=== PATIENT | male | born 1935 | race Caucasian/White ===

== ENCOUNTER 2016-08-30 20:03 | Inpatient (IN) | payer OTHER ==
[~2016-08-30] VITALS: Ht 170.2 cm; Wt 72.5 kg
[~2016-08-30 20:03] MED LIST: ASPI-515 PO; ATOR40TA PO; CHOL10003 PO; CLOP75TA22 PO; LORA-445 PO; LOSA25TA5 PO; METF500T4 PO; METO25TA35 PO; OMEP-110 PO; RANO500T2 PO
[2016-08-30] MEDS ORDERED: SODIUM CHLORIDE 0.9% 1,000ML IVBOLUS ONE (20:30)
[2016-08-30] MEDS: SODIUM CHLORIDE 0.9% 1,000 ML IV ONE ×2 (20:58→23:33)
[2016-08-30] MEDS ORDERED: LORA-445 PO (20:59)
[2016-08-30 21:00] LABS: BLOOD UREA NITROGEN 25 mg/dL (7-18)
[2016-08-30 21:03] LABS: ASPARTATE AMINO TRANSFERASE 9 U/L (15-37)
[2016-08-30] MEDS ORDERED: OMNIPAQUE 350 MG/ML, 100ML BOTTLE ONE (21:14)
[2016-08-31] MEDS ORDERED: LORazepam 0.5MG TABLET PO SCH
[2016-08-31] MEDS ORDERED: ONDANSETRON 2MG/ML, 2ML IVPush PRN (00:30)
[2016-08-31] MEDS ORDERED: DOCUSATE 100 MG CAPSULE PO PRN (00:30)
[2016-08-31] MEDS ORDERED: HYDROcodone/APAP 5/325 TABLET PO PRN (00:30)
[2016-08-31] MEDS ORDERED: ACETAMINOPHEN 325 MG TABLET PO PRN (00:30)
[2016-08-31] MEDS ORDERED: morphine SULFATE 10 MG/ML, 1ML IVPush PRN (00:30)
[2016-08-31] MEDS ORDERED: POLYETHYLENE GLYCOL 17 GM PACKET PO PRN (00:30)
[2016-08-31] MEDS: LORAZEPAM MC SCH ×2 (02:00→10:00)
[2016-08-31] MEDS: SODIUM CHLORIDE 0.9% 1,000 ML IV SCH ×2 (02:23→13:18)
[2016-08-31 02:37] VITALS: BP 107/68
[2016-08-31 06:26] VITALS: BP 95/58
[2016-08-31 08:43] VITALS: BP 104/62
[2016-08-31] MEDS: RANOLAZINE 500 MG TAB.ER.12H PO SCH ×2 (08:44→21:11)
[2016-08-31] MEDS: METOPROLOL TARTRATE 25 MG TABLET PO SCH ×2 (08:44→21:00)
[2016-08-31] MEDS ORDERED: LORazepam 0.5MG TABLET PO PRN (12:30)
[2016-08-31 13:37] VITALS: BP 107/55
[2016-08-31] MEDS: LORazepam 0.5MG TABLET PO PRN (18:43)
[2016-08-31 20:01] VITALS: BP 110/67
[2016-08-31] MEDS: ATORVASTATIN 40 MG TABLET PO SCH (21:11)
[2016-08-31] MEDS: LOSARTAN 25MG TABLET PO SCH (21:11)
[2016-09-01 04:05] VITALS: BP 126/79
[2016-09-01 06:37] LABS: BLOOD UREA NITROGEN 14 mg/dL (7-18)
[2016-09-01 07:43] VITALS: BP 97/46
[2016-09-01] MEDS: RANOLAZINE 500 MG TAB.ER.12H PO SCH ×2 (08:55→21:08)
[2016-09-01] MEDS: METOPROLOL TARTRATE 25 MG TABLET PO SCH ×2 (08:55→21:00)
[2016-09-01] MEDS: LORazepam 0.5MG TABLET PO PRN ×2 (10:34→21:09)
[2016-09-01 14:46] VITALS: BP 105/61
[2016-09-01 20:00] VITALS: BP 105/63
[2016-09-01] MEDS: ATORVASTATIN 40 MG TABLET PO SCH (21:08)
[2016-09-01] MEDS: LOSARTAN 25MG TABLET PO SCH (21:08)
[2016-09-02 02:06] VITALS: BP 98/58
[2016-09-02 08:27] VITALS: BP 99/62
[2016-09-02] MEDS: LORazepam 0.5MG TABLET PO PRN (09:56)
[2016-09-02] MEDS: METOPROLOL TARTRATE 25 MG TABLET PO SCH (09:56)
[2016-09-02] MEDS: RANOLAZINE 500 MG TAB.ER.12H PO SCH (09:56)
== END 2016-09-02 10:35 | disposition home or self-care (01) | DRG 377 ==
LOC: ED 23:03 → SUATTDRO 23:55 → EDIP 23:59 → 3NE 08-31 01:37 → DCLOUNGE 09-02 10:22
PROVIDERS: ADMIT Family Medicine; ATTEND Family Medicine
DX: K92.2 Gastrointestinal hemorrhage, unspecified (principal); N17.0 Acute kidney failure with tubular necrosis; E87.1 Hypo-osmolality and hyponatremia; E11.9 Type 2 diabetes mellitus without complications; I25.10 Atherosclerotic heart disease of native coronary artery without angina pectoris; K21.9 Gastro-esophageal reflux disease without esophagitis; K57.30 Diverticulosis of large intestine without perforation or abscess without bleeding; Z66 Do not resuscitate; Z79.01 Long term (current) use of anticoagulants; Z79.02 Long term (current) use of antithrombotics/antiplatelets; Z79.82 Long term (current) use of aspirin; Z82.49 Family history of ischemic heart disease and other diseases of the circulatory system; Z85.46 Personal history of malignant neoplasm of prostate; Z95.1 Presence of aortocoronary bypass graft; Z90.49 Acquired absence of other specified parts of digestive tract; Z91.011 Allergy to milk products; Z79.899 Other long term (current) drug therapy; R03.0 Elevated blood-pressure reading, without diagnosis of hypertension; K92.1 Melena; I95.1 Orthostatic hypotension; T45.525A Adverse effect of antithrombotic drugs, initial encounter; T39.015A Adverse effect of aspirin, initial encounter
CPT/HCPCS: 36415; 74177; 80048; 80053; 81003; 83690; 83735; 85014; 85018; 85025; 85610; 85730; 86850; 86900; 96360; 96361; Q9967; J7030

== ENCOUNTER 2017-06-04 19:31 | Inpatient (IN) | payer OTHER ==
[~2017-06-04] VITALS: Ht 170.2 cm; Wt 68.1 kg
[~2017-06-04 19:31] MED LIST changes: -CLOP75TA22 PO; +CLOP75TA52 PO
[2017-06-04] MEDS ORDERED: SODIUM CHLORIDE FLUSH 10ML SYR IVF ONE (20:00)
[2017-06-04 20:17] LABS: INTERNATIONAL NORMALIZED RATIO 1.18 (0.93-1.1); PROTHROMBIN TIME 12.2 Seconds (9.6-11.5)
[2017-06-04 20:19] LABS: ALBUMIN 2.9 g/dL (3.4-5.0); ANION GAP 5 mmol/L (5-15); CALCIUM 8.2 mg/dL (8.5-10.1); CHLORIDE 104 mmol/L (98-107); CREATININE 1.64 mg/dL (0.7-1.3)
[2017-06-04 20:24] LABS: TROPONIN I < 0.015 ng/mL (0.000-0.045)
[2017-06-04 20:27] LABS: HEMOGRAM NOTE RECHECKED; MEAN CORPUSCULAR HEMOGLOBIN 31.8 pg (27.5-34.5); MEAN CORPUSCULAR VOLUME 93.5 fL (81-97); PLATELET COUNT 69 x10^3/uL (130-400); RED BLOOD COUNT 4.33 x10^6/uL (4.38-5.82); RED CELL DISTRIBUTION WIDTH 15.3 % (9.4-14.8)
[2017-06-04 20:28] LABS: MD YES
[2017-06-04 20:29] LABS: LYMPH#(MANUAL) 0.96 x10^3/uL (1-3.4); LYMPHS% (MANUAL) 13 % (22-44); MONOS% (MANUAL) 4 % (2-9); SEG#(MANUAL) 6.14 x10^3/uL (1.8-6.8); SEGS% (MANUAL) 83 % (42-75)
[2017-06-04 20:30] LABS: <PLATELET ESTIMATE> DECREASED; <RBC MORPHOLOGY> NORMAL; LARGE PLATELETS 1+
[2017-06-04] MEDS ORDERED: SODIUM CHLORIDE FLUSH 10ML SYR IVF PRN (21:30)
[2017-06-04 22:47] VITALS: BP 145/66
[2017-06-05] MEDS ORDERED: ATORVASTATIN 40 MG TABLET PO SCH (01:00)
[2017-06-05] MEDS ORDERED: LORazepam 0.5MG TABLET PO SCH (01:00)
[2017-06-05] MEDS ORDERED: LOSARTAN 25MG TABLET PO SCH (01:00)
[2017-06-05] MEDS: ATIVAN MC SCH ×2 (01:05→09:00)
[2017-06-05] MEDS ORDERED: LORazepam 0.5MG TABLET ONE (01:22)
[2017-06-05] MEDS: SODIUM CHLORIDE 0.9% 1,000 ML IV SCH ×2 (01:23→16:05)
[2017-06-05] MEDS ORDERED: hydrALAzine 20 MG/ML, 1ML IVPush PRN (01:30)
[2017-06-05] MEDS ORDERED: POLYETHYLENE GLYCOL 17 GM PACKET PO PRN (01:30)
[2017-06-05] MEDS ORDERED: ACETAMINOPHEN 325 MG TABLET PO PRN (01:30)
[2017-06-05] MEDS ORDERED: BISACODYL 10 MG SUPP PR PRN (01:30)
[2017-06-05] MEDS ORDERED: LABETALOL 5MG/ML, 20ML IVPush PRN (01:30)
[2017-06-05] MEDS ORDERED: morphine SULFATE 10 MG/ML, 1ML IVPush PRN (01:30)
[2017-06-05] MEDS ORDERED: ENALAPRILAT 1.25 MG/ML, 2ML IVPush PRN (01:30)
[2017-06-05] MEDS ORDERED: ONDANSETRON 2MG/ML, 2ML IVPush PRN (01:30)
[2017-06-05] MEDS ORDERED: OXYcodone IR 5MG TABLET PO PRN (01:30)
[2017-06-05] MEDS: HEPARIN 5,000 UNITS/ML, 1ML SQ SCH ×2 (01:37→08:21)
[2017-06-05 02:14] LABS: FREE T4 (FREE THYROXINE) 1.16 ng/dL (0.76-1.46); THYROID STIMULATING HORMONE 1.18 mIU/L (0.358-3.740)
[2017-06-05 02:45] LABS: HEMOGLOBIN A1C 7.2 % (4.2-6.3)
[2017-06-05 02:50] VITALS: BP_SYST 123; BP_SYST 149; BP_DIAS 72
[2017-06-05 03:26] LABS: MEAN CORPUSCULAR HEMOGLOBIN 31.4 pg (27.5-34.5); MEAN CORPUSCULAR HGB CONC 33.5 g/dL (33.2-36.2); MEAN CORPUSCULAR VOLUME 93.9 fL (81-97); RED BLOOD COUNT 4.64 x10^6/uL (4.38-5.82); RED CELL DISTRIBUTION WIDTH 14.9 % (9.4-14.8)
[2017-06-05 03:29] LABS: ALANINE AMINOTRANSFERASE 21 U/L (12-78); ALBUMIN 3.1 g/dL (3.4-5.0); ANION GAP 6 mmol/L (5-15); CALCIUM 8.4 mg/dL (8.5-10.1); CHLORIDE 104 mmol/L (98-107); CREATININE 1.46 mg/dL (0.7-1.3)
[2017-06-05 03:34] LABS: ALKALINE PHOSPHATASE 77 U/L (45-117); BILIRUBIN,TOTAL 0.9 mg/dL (0.2-1.0); TOTAL PROTEIN 5.8 g/dL (6.4-8.2); TROPONIN I < 0.015 ng/mL (0.000-0.045)
[2017-06-05 03:49] LABS: BASOPHILS # (AUTO) 0.04 x10^3/uL (0-0.1); BASOPHILS % (AUTO) 1 % (0-1); EOSINOPHILS # (AUTO) 0.22 x10^3/uL (0-0.4); EOSINOPHILS % (AUTO) 4 % (1-7); LYMPHOCYTES # (AUTO) 1.48 x10^3/uL (1-3.4); LYMPHOCYTES % (AUTO) 25 % (22-44); MD SCAN; MEAN PLATELET VOLUME 9.9 fL (7.4-10.4); MONOCYTES # (AUTO) 0.57 x10^3/uL (0.2-0.8); MONOCYTES % (AUTO) 10 % (2-9); NEUTROPHILS # (AUTO) 3.58 x10^3/uL (1.8-6.8); NEUTROPHILS % (AUTO) 61 % (42-75); PLATELET COUNT 72 x10^3/uL (130-400)
[2017-06-05] MEDS: INSULIN LISPRO 100 UNITS/ML, PEN SQ-INSULIN SCH ×2 (07:00→11:00)
[2017-06-05 07:03] VITALS: BP 154/77
[2017-06-05] MEDS ORDERED: OMEPRAZOLE 20 MG CAPSULE.DR PO SCH (09:00)
[2017-06-05] MEDS ORDERED: METOPROLOL TARTRATE 25 MG TABLET PO SCH (09:00)
[2017-06-05] MEDS ORDERED: RANOLAZINE 500 MG TAB.ER.12H PO SCH (09:00)
[2017-06-05] MEDS ORDERED: ASPIRIN 81 MG TABLET EC PO SCH (09:00)
[2017-06-05] MEDS ORDERED: CLOPIDOGREL 75 MG TABLET PO SCH (09:00)
[2017-06-05] MEDS ORDERED: SENNA/DOCUSATE TABLET PO SCH (09:00)
[2017-06-05 09:08] LABS: TROPONIN I < 0.015 ng/mL (0.000-0.045)
[2017-06-05] MEDS ORDERED: REGADENOSON 0.4 MG/5 ML SYRINGE ONE (09:59)
[2017-06-05 13:02] VITALS: BP 129/71
[2017-06-05 16:38] VITALS: BP 136/71
[2017-06-05] MEDS ORDERED: LORazepam 0.5MG TABLET PO PRN (21:00)
== END 2017-06-05 17:09 | disposition home or self-care (01) | DRG 551 ==
LOC: ED 21:35 → EDIP 21:46 → 5SO 22:41
PROVIDERS: ADMIT Internal Medicine; ATTEND Internal Medicine
DX: M54.2 Cervicalgia (principal); N17.0 Acute kidney failure with tubular necrosis; E44.0 Moderate protein-calorie malnutrition; I25.110 Atherosclerotic heart disease of native coronary artery with unstable angina pectoris; D69.6 Thrombocytopenia, unspecified; Z79.82 Long term (current) use of aspirin; Z95.1 Presence of aortocoronary bypass graft; Z95.5 Presence of coronary angioplasty implant and graft; E11.9 Type 2 diabetes mellitus without complications; E78.5 Hyperlipidemia, unspecified; I10 Essential (primary) hypertension; K21.9 Gastro-esophageal reflux disease without esophagitis; Z80.9 Family history of malignant neoplasm, unspecified; I25.2 Old myocardial infarction; I51.89 Other ill-defined heart diseases; Z91.011 Allergy to milk products; Z82.49 Family history of ischemic heart disease and other diseases of the circulatory system; R07.89 Other chest pain
CPT/HCPCS: 36415; 71045; 78452; 80048; 80053; 82040; 82962; 83036; 83735; 83880; 84439; 84443; 84484; 85025; 85610; 85730; 93005; 93017; 93880; 99285; J1644; J2785; A9502; C9898; J7030

== ENCOUNTER 2017-07-27 19:38 | Inpatient (IN) | payer OTHER ==
[~2017-07-27] VITALS: Ht 170.2 cm; Wt 66.9 kg
[2017-07-27] MEDS ORDERED: SODIUM CHLORIDE FLUSH 10ML SYR IVF ONE (20:30)
[2017-07-27] MEDS ORDERED: PLEASE ENTER ALLERGIES MC SCH (20:30)
[2017-07-27 20:33] LABS: INTERNATIONAL NORMALIZED RATIO 1.12 (0.93-1.1); PROTHROMBIN TIME 11.5 Seconds (9.6-11.5)
[2017-07-27 20:35] LABS: MEAN CORPUSCULAR HEMOGLOBIN 31.3 pg (27.5-34.5); MEAN CORPUSCULAR HGB CONC 33.3 g/dL (33.2-36.2); MEAN CORPUSCULAR VOLUME 93.7 fL (81-97); RED CELL DISTRIBUTION WIDTH 13.9 % (9.4-14.8)
[2017-07-27 20:37] LABS: ALBUMIN 3.6 g/dL (3.4-5.0); ANION GAP 7 mmol/L (5-15); CALCIUM 8.8 mg/dL (8.5-10.1); CHLORIDE 99 mmol/L (98-107); CREATININE 1.24 mg/dL (0.7-1.3)
[2017-07-27] MEDS ORDERED: ISOS30TA8 PO (20:39)
[2017-07-27 20:41] LABS: TROPONIN I < 0.015 ng/mL (0.000-0.045)
[2017-07-27 20:53] LABS: BASOPHILS # (AUTO) 0.04 x10^3/uL (0-0.1); BASOPHILS % (AUTO) 1 % (0-1); EOSINOPHILS # (AUTO) 0.19 x10^3/uL (0-0.4); EOSINOPHILS % (AUTO) 3 % (1-7); LYMPHOCYTES # (AUTO) 1.56 x10^3/uL (1-3.4); LYMPHOCYTES % (AUTO) 22 % (22-44); MD SCAN; MEAN PLATELET VOLUME 9.5 fL (7.4-10.4); MONOCYTES # (AUTO) 0.67 x10^3/uL (0.2-0.8); MONOCYTES % (AUTO) 9 % (2-9); NEUTROPHILS # (AUTO) 4.67 x10^3/uL (1.8-6.8); NEUTROPHILS % (AUTO) 65 % (42-75); PLATELET COUNT 79 x10^3/uL (130-400)
[2017-07-27] MEDS ORDERED: SODIUM CHLORIDE FLUSH 10ML SYR IVF PRN (21:30)
[2017-07-27] MEDS ORDERED: ACETAMINOPHEN 325 MG TABLET PO PRN (22:00)
[2017-07-27] MEDS ORDERED: ENOXAPARIN 40 MG/0.4 ML SQ SCH (22:00)
[2017-07-27] MEDS ORDERED: ONDANSETRON 2MG/ML, 2ML IVPush PRN (22:00)
[2017-07-27] MEDS ORDERED: LORazepam 0.5MG TABLET PO SCH (22:00)
[2017-07-27] MEDS ORDERED: DOCUSATE 100 MG CAPSULE PO PRN (22:00)
[2017-07-27] MEDS ORDERED: POLYETHYLENE GLYCOL 17 GM PACKET PO PRN (22:00)
[2017-07-27] MEDS ORDERED: BISACODYL 10 MG SUPP PR PRN (22:00)
[2017-07-27] MEDS ORDERED: hydrALAzine 20 MG/ML, 1ML IVPush PRN (22:00)
[2017-07-27 22:05] LABS: HCT (SEDRATE) 47.8 % (39.2-51.8)
[2017-07-27 23:19] VITALS: BP 162/81
[2017-07-27 23:30] VITALS: BP 162/81
[2017-07-27] MEDS ORDERED: [UNRECOGNIZED DRUG - REMARK] MC SCH (23:45)
[2017-07-28 00:09] VITALS: BP 134/75
[2017-07-28] MEDS ORDERED: PLEASE ENTER DRUG ALLERGIES MC SCH (01:00)
[2017-07-28 04:15] VITALS: BP 133/72
[2017-07-28 05:00] LABS: ANION GAP 5 mmol/L (5-15); CALCIUM 8.1 mg/dL (8.5-10.1); CHLORIDE 101 mmol/L (98-107)
[2017-07-28 05:01] LABS: CREATININE 1.21 mg/dL (0.7-1.3); MEAN CORPUSCULAR HEMOGLOBIN 31.6 pg (27.5-34.5); MEAN CORPUSCULAR HGB CONC 33.9 g/dL (33.2-36.2); MEAN CORPUSCULAR VOLUME 93.2 fL (81-97); RED BLOOD COUNT 4.69 x10^6/uL (4.38-5.82)
[2017-07-28 05:53] LABS: BASOPHILS # (AUTO) 0.02 x10^3/uL (0-0.1); BASOPHILS % (AUTO) 0 % (0-1); EOSINOPHILS # (AUTO) 0.24 x10^3/uL (0-0.4); EOSINOPHILS % (AUTO) 4 % (1-7); LYMPHOCYTES # (AUTO) 1.52 x10^3/uL (1-3.4); LYMPHOCYTES % (AUTO) 23 % (22-44); MD SCAN; MEAN PLATELET VOLUME 9.2 fL (7.4-10.4); MONOCYTES # (AUTO) 0.77 x10^3/uL (0.2-0.8); MONOCYTES % (AUTO) 12 % (2-9); NEUTROPHILS # (AUTO) 4.19 x10^3/uL (1.8-6.8); NEUTROPHILS % (AUTO) 62 % (42-75); PLATELET COUNT 71 x10^3/uL (130-400)
[2017-07-28] MEDS ORDERED: LORazepam 0.5MG TABLET PO PRN ×2 (06:30→07:00)
[2017-07-28 08:36] VITALS: BP 138/83
[2017-07-28] MEDS ORDERED: ISOSORBIDE MONONITRATE ER 30 MG TABLET PO SCH (09:00)
[2017-07-28] MEDS ORDERED: SODIUM CHLORIDE FLUSH 10ML SYR IVF SCH (09:00)
[2017-07-28] MEDS ORDERED: CLOPIDOGREL 75 MG TABLET PO SCH (09:00)
[2017-07-28] MEDS ORDERED: METOPROLOL TARTRATE 25 MG TABLET PO SCH ×2 (09:00)
[2017-07-28] MEDS ORDERED: ASPIRIN 81 MG TABLET EC PO SCH (09:00)
[2017-07-28] MEDS ORDERED: GADOBUTROL 10 MMOL/10 ML PFS ONE (11:20)
[2017-07-28 11:45] VITALS: BP 112/74
[2017-07-28] MEDS ORDERED: ATORVASTATIN 40 MG TABLET PO SCH (21:00)
[2017-07-28] MEDS ORDERED: LOSARTAN 25MG TABLET PO SCH (21:00)
== END 2017-07-28 15:40 | disposition home or self-care (01) | DRG 69 ==
LOC: ED 21:09 → EDIP 21:55 → 5SO 23:37 → DCLOUNGE 07-28 15:28
PROVIDERS: ADMIT Hospitalist; ATTEND Hospitalist
DX: G45.9 Transient cerebral ischemic attack, unspecified (principal); E87.1 Hypo-osmolality and hyponatremia; I50.32 Chronic diastolic (congestive) heart failure; E11.65 Type 2 diabetes mellitus with hyperglycemia; I11.0 Hypertensive heart disease with heart failure; D69.6 Thrombocytopenia, unspecified; I25.10 Atherosclerotic heart disease of native coronary artery without angina pectoris; M54.2 Cervicalgia; E78.5 Hyperlipidemia, unspecified; Z60.2 Problems related to living alone; K21.9 Gastro-esophageal reflux disease without esophagitis; Z84.89 Family history of other specified conditions; Z95.1 Presence of aortocoronary bypass graft; Z87.891 Personal history of nicotine dependence; Z86.73 Personal history of transient ischemic attack (TIA), and cerebral infarction without residual deficits; Z85.46 Personal history of malignant neoplasm of prostate; Z79.84 Long term (current) use of oral hypoglycemic drugs; I25.2 Old myocardial infarction; Z79.899 Other long term (current) drug therapy; Z79.82 Long term (current) use of aspirin; Z90.79 Acquired absence of other genital organ(s); Z90.49 Acquired absence of other specified parts of digestive tract; Z80.9 Family history of malignant neoplasm, unspecified
CPT/HCPCS: 36415; 70450; 70553; 71045; 80048; 82040; 84484; 85025; 85610; 85651; 85730; 93005; A9585; J1650

== ENCOUNTER 2017-07-29 19:50 | Emergency (ER) | payer OTHER ==
[~2017-07-29] VITALS: Ht 170.2 cm; Wt 66.0 kg
[~2017-07-29 19:50] MED LIST changes: +ISOS30TA8 PO; -METF500T4 PO; +METF500T5 PO
[2017-07-29] MEDS ORDERED: SODIUM CHLORIDE FLUSH 10ML SYR IVF ONE (20:30)
[2017-07-29 20:58] LABS: MEAN CORPUSCULAR HGB CONC 33.4 g/dL (33.2-36.2); RED BLOOD COUNT 4.62 x10^6/uL (4.38-5.82); RED CELL DISTRIBUTION WIDTH 14.2 % (9.4-14.8)
[2017-07-29 21:03] LABS: INTERNATIONAL NORMALIZED RATIO 1.14 (0.93-1.1); PROTHROMBIN TIME 11.7 Seconds (9.6-11.5)
[2017-07-29 21:09] LABS: ALBUMIN 3.1 g/dL (3.4-5.0); ANION GAP 5 mmol/L (5-15); CALCIUM 8.6 mg/dL (8.5-10.1); CHLORIDE 99 mmol/L (98-107); CREATININE 1.37 mg/dL (0.7-1.3)
[2017-07-29 21:12] LABS: TROPONIN I < 0.015 ng/mL (0.000-0.045)
[2017-07-29 21:41] VITALS: BP 137/70
[2017-07-29 22:11] LABS: BASOPHILS # (AUTO) 0.03 x10^3/uL (0-0.1); BASOPHILS % (AUTO) 0 % (0-1); EOSINOPHILS # (AUTO) 0.17 x10^3/uL (0-0.4); EOSINOPHILS % (AUTO) 2 % (1-7); LYMPHOCYTES # (AUTO) 1.15 x10^3/uL (1-3.4); LYMPHOCYTES % (AUTO) 16 % (22-44); MD SCAN; MEAN PLATELET VOLUME 9.5 fL (7.4-10.4); MONOCYTES # (AUTO) 0.77 x10^3/uL (0.2-0.8); MONOCYTES % (AUTO) 11 % (2-9); NEUTROPHILS # (AUTO) 5.25 x10^3/uL (1.8-6.8); NEUTROPHILS % (AUTO) 71 % (42-75); PLATELET COUNT 79 x10^3/uL (130-400)
== END 2017-07-29 21:44 | disposition home or self-care (01) ==
LOC: ED 20:56
DX: R07.2 Precordial pain (principal); I25.2 Old myocardial infarction; E78.5 Hyperlipidemia, unspecified; E11.9 Type 2 diabetes mellitus without complications; K21.9 Gastro-esophageal reflux disease without esophagitis; I25.10 Atherosclerotic heart disease of native coronary artery without angina pectoris; I11.9 Hypertensive heart disease without heart failure; Z95.1 Presence of aortocoronary bypass graft; Z87.891 Personal history of nicotine dependence; Z86.73 Personal history of transient ischemic attack (TIA), and cerebral infarction without residual deficits
CPT/HCPCS: 36415; 71045; 80048; 82040; 83880; 84484; 85025; 85610; 93005; 99285

== ENCOUNTER 2017-11-29 19:13 | Observation (INO) | payer OTHER ==
[~2017-11-29] VITALS: Ht 170.2 cm; Wt 69.5 kg
[~2017-11-29 19:13] MED LIST changes: -LOSA25TA5 PO; +LOSA25TA6 PO; +METF500T17 PO; -METF500T5 PO
[2017-11-29 20:16] LABS: ALANINE AMINOTRANSFERASE 28 U/L (12-78); ALBUMIN 3.2 g/dL (3.4-5.0); ANION GAP 3 mmol/L (5-15); CALCIUM 8.9 mg/dL (8.5-10.1); CHLORIDE 101 mmol/L (98-107); CREATININE 1.53 mg/dL (0.7-1.3)
[2017-11-29 20:21] LABS: ALKALINE PHOSPHATASE 104 U/L (45-117); BILIRUBIN,TOTAL 0.6 mg/dL (0.2-1.0); TOTAL PROTEIN 6.5 g/dL (6.4-8.2); TROPONIN I < 0.015 ng/mL (0.000-0.045)
[2017-11-29 20:29] LABS: MEAN CORPUSCULAR HGB CONC 33.8 g/dL (33.2-36.2); MEAN CORPUSCULAR VOLUME 91.8 fL (81-97); MEAN PLATELET VOLUME 9.6 fL (7.4-10.4); PLATELET COUNT 101 x10^3/uL (130-400); RED BLOOD COUNT 4.78 x10^6/uL (4.38-5.82); RED CELL DISTRIBUTION WIDTH 14.8 % (9.4-14.8)
[2017-11-29 20:30] LABS: BASOPHILS # (AUTO) 0.05 x10^3/uL (0-0.1); BASOPHILS % (AUTO) 1 % (0-1); EOSINOPHILS # (AUTO) 0.19 x10^3/uL (0-0.4); EOSINOPHILS % (AUTO) 2 % (1-7); LYMPHOCYTES # (AUTO) 1.19 x10^3/uL (1-3.4); LYMPHOCYTES % (AUTO) 13 % (22-44); MD SCAN; MONOCYTES # (AUTO) 0.75 x10^3/uL (0.2-0.8); MONOCYTES % (AUTO) 8 % (2-9); NEUTROPHILS # (AUTO) 6.73 x10^3/uL (1.8-6.8); NEUTROPHILS % (AUTO) 76 % (42-75)
[2017-11-29] MEDS ORDERED: SODIUM CHLORIDE 0.9% 1,000 ML IV SCH (21:26)
[2017-11-29] MEDS ORDERED: ONDANSETRON 2MG/ML, 2ML IVPush PRN (21:30)
[2017-11-29] MEDS ORDERED: NITROGLYCERIN 0.4 MG BOTTLE (25 TABS) SL PRN (21:30)
[2017-11-29] MEDS ORDERED: hydrALAzine 20 MG/ML, 1ML IVPush PRN (21:30)
[2017-11-29] MEDS ORDERED: CYCLOBENZAPRINE 10 MG TABLET PO PRN (21:30)
[2017-11-29] MEDS ORDERED: BISACODYL 10 MG SUPP PR PRN (21:30)
[2017-11-29] MEDS ORDERED: GABAPENTIN 300 MG CAPSULE PO PRN (21:30)
[2017-11-29] MEDS ORDERED: POLYETHYLENE GLYCOL 17 GM PACKET PO PRN (21:30)
[2017-11-29] MEDS ORDERED: morphine SULFATE 10 MG/ML, 1ML IVPush PRN (21:30)
[2017-11-29] MEDS ORDERED: DOCUSATE 100 MG CAPSULE PO PRN (21:30)
[2017-11-29] MEDS ORDERED: PROMETHAZINE 25 MG/ML, 1ML IM PRN (21:30)
[2017-11-29] MEDS ORDERED: LABETALOL 5MG/ML, 20ML IVPush PRN (21:30)
[2017-11-29] MEDS ORDERED: ONDANSETRON ODT 4 MG PO PRN (21:30)
[2017-11-29] MEDS ORDERED: ATORVASTATIN 40 MG TABLET PO SCH (22:00)
[2017-11-29] MEDS ORDERED: LORazepam 0.5MG TABLET PO SCH (22:00)
[2017-11-29] MEDS ORDERED: LOSARTAN 25MG TABLET PO SCH (22:00)
[2017-11-29 22:32] VITALS: BP 142/81
[2017-11-29 22:36] LABS: FREE T4 (FREE THYROXINE) 1.13 ng/dL (0.76-1.46); THYROID STIMULATING HORMONE 1.39 mIU/L (0.358-3.740)
[2017-11-29] MEDS: FAMOTIDINE 20 MG/2 ML IVPush SCH (23:26)
[2017-11-29] MEDS: ACETAMINOPHEN 500 MG TABLET PO SCH (23:26)
[2017-11-29] MEDS: METOPROLOL TARTRATE 25 MG TABLET PO SCH (23:27)
[2017-11-29] MEDS: HEPARIN 5,000 UNITS/ML, 1ML SQ SCH (23:27)
[2017-11-30 00:17] LABS: MICROSCOPIC NOT IND
[2017-11-30 00:21] LABS: CULTURE INDICATED? NO
[2017-11-30 01:22] LABS: TROPONIN I < 0.015 ng/mL (0.000-0.045)
[2017-11-30 01:53] VITALS: BP 143/76
[2017-11-30] MEDS ORDERED: ASPIRIN 325 MG TABLET EC PO SCH (06:00)
[2017-11-30] MEDS: HEPARIN 5,000 UNITS/ML, 1ML SQ SCH ×2 (06:30→13:30)
[2017-11-30 07:22] VITALS: BP 133/76
[2017-11-30 07:41] LABS: MEAN CORPUSCULAR HEMOGLOBIN 30.9 pg (27.5-34.5); MEAN CORPUSCULAR HGB CONC 33.6 g/dL (33.2-36.2); MEAN PLATELET VOLUME 9.3 fL (7.4-10.4); PLATELET COUNT 84 x10^3/uL (130-400); RED BLOOD COUNT 4.87 x10^6/uL (4.38-5.82); RED CELL DISTRIBUTION WIDTH 14.9 % (9.4-14.8)
[2017-11-30 07:44] LABS: ALANINE AMINOTRANSFERASE 24 U/L (12-78); ANION GAP 7 mmol/L (5-15); CALCIUM 8.2 mg/dL (8.5-10.1); CHLORIDE 103 mmol/L (98-107); CREATININE 1.32 mg/dL (0.7-1.3)
[2017-11-30 07:47] LABS: ALKALINE PHOSPHATASE 97 U/L (45-117); BILIRUBIN,TOTAL 0.9 mg/dL (0.2-1.0); CHOL/HDL RATIO 1.8; CHOLESTEROL, TOTAL 66 mg/dL (140-239); HDL CHOL % 55 % (26-37); HDL CHOLESTEROL (DIRECT) 36 mg/dL (40-60); LDL CHOLESTEROL,CALCULATED 21 mg/dL (54-169); LDL/HDL RATIO 0.6 (0.5-3.0); TOTAL PROTEIN 5.9 g/dL (6.4-8.2); TRIGLYCERIDES 43 mg/dL (50-200); VLDL CHOLESTEROL 9 mg/dL (0-25)
[2017-11-30 07:49] LABS: TROPONIN I < 0.015 ng/mL (0.000-0.045)
[2017-11-30 08:22] LABS: BASOPHILS # (AUTO) 0.03 x10^3/uL (0-0.1); BASOPHILS % (AUTO) 1 % (0-1); EOSINOPHILS # (AUTO) 0.24 x10^3/uL (0-0.4); EOSINOPHILS % (AUTO) 5 % (1-7); LYMPHOCYTES # (AUTO) 1.15 x10^3/uL (1-3.4); LYMPHOCYTES % (AUTO) 25 % (22-44); MD SCAN; MONOCYTES # (AUTO) 0.53 x10^3/uL (0.2-0.8); MONOCYTES % (AUTO) 11 % (2-9); NEUTROPHILS # (AUTO) 2.75 x10^3/uL (1.8-6.8); NEUTROPHILS % (AUTO) 59 % (42-75)
[2017-11-30] MEDS: METOPROLOL TARTRATE 25 MG TABLET PO SCH (08:48)
[2017-11-30] MEDS: FAMOTIDINE 20 MG/2 ML IVPush SCH (08:48)
[2017-11-30] MEDS: ACETAMINOPHEN 500 MG TABLET PO SCH (08:49)
[2017-11-30] MEDS ORDERED: CLOPIDOGREL 75 MG TABLET PO SCH (09:00)
[2017-11-30] MEDS ORDERED: OMEPRAZOLE 20 MG CAPSULE.DR PO SCH (09:00)
[2017-11-30] MEDS ORDERED: ISOSORBIDE MONONITRATE ER 30 MG TABLET PO SCH (09:00)
[2017-11-30] MEDS ORDERED: metFORMIN 500 MG TABLET PO SCH (09:00)
[2017-11-30] MEDS ORDERED: METO25TA35 PO (10:30)
[2017-11-30 12:16] VITALS: BP 98/60
[2017-12-01] MEDS ORDERED: FAMOTIDINE 20 MG/2 ML IVPush SCH (09:00)
== END 2017-11-30 17:07 | disposition home or self-care (01) ==
LOC: ED 20:05 → INTOOBSV 20:53 → EDIP 20:53 → 5SO 22:26
PROVIDERS: ADMIT Internal Medicine; ATTEND Internal Medicine
DX: R07.9 Chest pain, unspecified (principal); N17.0 Acute kidney failure with tubular necrosis; I25.10 Atherosclerotic heart disease of native coronary artery without angina pectoris; E11.9 Type 2 diabetes mellitus without complications; D69.6 Thrombocytopenia, unspecified; E44.0 Moderate protein-calorie malnutrition; E78.5 Hyperlipidemia, unspecified; I10 Essential (primary) hypertension; I25.2 Old myocardial infarction; K21.9 Gastro-esophageal reflux disease without esophagitis; Z80.9 Family history of malignant neoplasm, unspecified; Z86.73 Personal history of transient ischemic attack (TIA), and cerebral infarction without residual deficits; Z87.891 Personal history of nicotine dependence; Z95.1 Presence of aortocoronary bypass graft
CPT/HCPCS: 36415; 71046; 80053; 80061; 81003; 83735; 84439; 84443; 84484; 85025; 93005; 96361; 96374; 96376; 99285; G0378; J1644; J7030; S0028

== ENCOUNTER 2018-01-11 19:26 | Observation (INO) | payer OTHER ==
[~2018-01-11] VITALS: Ht 170.2 cm; Wt 70.0 kg
[2018-01-11 04:09] VITALS: BP 123/76
[2018-01-11 20:27] LABS: ALANINE AMINOTRANSFERASE 29 U/L (12-78); ALBUMIN 3.2 g/dL (3.4-5.0); ANION GAP 6 mmol/L (5-15); CALCIUM 8.1 mg/dL (8.5-10.1); CHLORIDE 101 mmol/L (98-107)
[2018-01-11 20:32] LABS: ALKALINE PHOSPHATASE 124 U/L (45-117); BILIRUBIN,TOTAL 0.7 mg/dL (0.2-1.0); CREATININE 1.39 mg/dL (0.7-1.3); TOTAL PROTEIN 6.4 g/dL (6.4-8.2); TROPONIN I < 0.015 ng/mL (0.000-0.045)
[2018-01-11 21:00] LABS: BASOPHILS # (AUTO) 0.06 x10^3/uL (0-0.1); BASOPHILS % (AUTO) 1 % (0-1); EOSINOPHILS # (AUTO) 0.19 x10^3/uL (0-0.4); EOSINOPHILS % (AUTO) 2 % (1-7); LYMPHOCYTES # (AUTO) 1.38 x10^3/uL (1-3.4); LYMPHOCYTES % (AUTO) 16 % (22-44); MD SCAN; MEAN CORPUSCULAR HEMOGLOBIN 30.5 pg (27.5-34.5); MEAN CORPUSCULAR HGB CONC 33.2 g/dL (33.2-36.2); MEAN CORPUSCULAR VOLUME 91.8 fL (81-97); MEAN PLATELET VOLUME 9.3 fL (7.4-10.4); MONOCYTES # (AUTO) 0.82 x10^3/uL (0.2-0.8); MONOCYTES % (AUTO) 9 % (2-9); NEUTROPHILS # (AUTO) 6.28 x10^3/uL (1.8-6.8); NEUTROPHILS % (AUTO) 72 % (42-75); PLATELET COUNT 85 x10^3/uL (130-400); RED BLOOD COUNT 4.82 x10^6/uL (4.38-5.82); RED CELL DISTRIBUTION WIDTH 14.5 % (9.4-14.8)
[2018-01-11 23:00] VITALS: BP 136/75
[2018-01-11] MEDS: ATORVASTATIN 40 MG TABLET PO SCH (23:30)
[2018-01-11] MEDS ORDERED: ONDANSETRON 4 MG TABLET PO PRN (23:30)
[2018-01-11] MEDS: INSULIN LISPRO 100 UNITS/ML, PEN SQ-INSULIN SCH (23:30)
[2018-01-11] MEDS ORDERED: LORazepam 0.5MG TABLET PO SCH (23:30)
[2018-01-12] VITALS (9 sets, daily range): BP systolic 113–143; BP diastolic 60–78
[2018-01-12 05:51] LABS: CHOL/HDL RATIO 2.2; LDL/HDL RATIO 0.7 (0.5-3.0)
[2018-01-12] MEDS: INSULIN LISPRO 100 UNITS/ML, PEN SQ-INSULIN SCH ×4 (07:00→21:18)
[2018-01-12] MEDS: OMEPRAZOLE 20 MG CAPSULE.DR PO SCH (08:33)
[2018-01-12] MEDS: ASPIRIN 81 MG TABLET EC PO SCH (08:33)
[2018-01-12] MEDS: CLOPIDOGREL 75 MG TABLET PO SCH (08:33)
[2018-01-12] MEDS: METOPROLOL TARTRATE 25 MG TABLET PO SCH (08:33)
[2018-01-12] MEDS: ISOSORBIDE MONONITRATE ER 30 MG TABLET PO SCH (08:33)
[2018-01-12] MEDS ORDERED: ASPIRIN 81 MG TABLET CHEW PO/NG SCH (09:00)
[2018-01-12] MEDS ORDERED: GADOBUTROL 7.5 MMOL/7.5 ML PFS ONE (12:00)
[2018-01-12] MEDS: ATORVASTATIN 40 MG TABLET PO SCH (20:22)
[2018-01-12] MEDS ORDERED: LOSA25TA6 PO (21:02)
[2018-01-13] VITALS: BP 122/69
[2018-01-13 04:00] VITALS: BP 132/72
[2018-01-13 06:32] VITALS: BP 122/64
[2018-01-13] MEDS: INSULIN LISPRO 100 UNITS/ML, PEN SQ-INSULIN SCH (07:00)
[2018-01-13] MEDS: ISOSORBIDE MONONITRATE ER 30 MG TABLET PO SCH (09:09)
[2018-01-13] MEDS: OMEPRAZOLE 20 MG CAPSULE.DR PO SCH (09:09)
[2018-01-13] MEDS: METOPROLOL TARTRATE 25 MG TABLET PO SCH (09:09)
[2018-01-13] MEDS: ASPIRIN 81 MG TABLET EC PO SCH (09:09)
[2018-01-13] MEDS: CLOPIDOGREL 75 MG TABLET PO SCH (09:09)
== END 2018-01-13 10:08 | disposition home or self-care (01) ==
LOC: ED 20:34 → EDIP 21:42 → 4EST 22:40 → INTOOBSV 23:13 → OBSVTOIN 23:13 → DCLOUNGE 01-13 09:58
PROVIDERS: ADMIT Hospitalist; ATTEND Hospitalist
DX: M46.92 Unspecified inflammatory spondylopathy, cervical region (principal); E87.1 Hypo-osmolality and hyponatremia; I11.0 Hypertensive heart disease with heart failure; I50.30 Unspecified diastolic (congestive) heart failure; R51 Headache; R20.0 Anesthesia of skin; I25.10 Atherosclerotic heart disease of native coronary artery without angina pectoris; E11.9 Type 2 diabetes mellitus without complications; E78.5 Hyperlipidemia, unspecified; I25.2 Old myocardial infarction; K21.9 Gastro-esophageal reflux disease without esophagitis; N28.9 Disorder of kidney and ureter, unspecified; I37.1 Nonrheumatic pulmonary valve insufficiency; R55 Syncope and collapse; Z95.1 Presence of aortocoronary bypass graft; Z79.84 Long term (current) use of oral hypoglycemic drugs; Z95.5 Presence of coronary angioplasty implant and graft; Z86.73 Personal history of transient ischemic attack (TIA), and cerebral infarction without residual deficits; Z79.82 Long term (current) use of aspirin; Z80.9 Family history of malignant neoplasm, unspecified; Z90.49 Acquired absence of other specified parts of digestive tract; Z79.02 Long term (current) use of antithrombotics/antiplatelets; Z87.891 Personal history of nicotine dependence
CPT/HCPCS: 36415; 70450; 70553; 72156; 80053; 80061; 82962; 83880; 84484; 85025; 92523; 93005; 93306; 93880; 96372; 97161; 97166; 99285; A9585; G0378; J1815; Q0162

== ENCOUNTER 2019-01-21 09:12 | Emergency (ER) | payer OTHER ==
[~2019-01-21] VITALS: Ht 170.2 cm; Wt 68.9 kg
[~2019-01-21 09:12] MED LIST changes: +LOSA25TA25 PO; -LOSA25TA6 PO
--- NOTE | 2019-01-21 11:13 | NUR ---
ANIMAL CARE SPECIALIST: PT TO ROOM FROM ANGELI NELSON
--- NOTE | 2019-01-21 11:20 | NUR ---
UA sent to lab
[2019-01-21 11:43] LABS: ALBUMIN 3.4 g/dL (3.4-5.0); ANION GAP 7 mmol/L (5-15); CALCIUM 8.7 mg/dL (8.5-10.1); CHLORIDE 101 mmol/L (98-107); CREATININE 1.47 mg/dL (0.7-1.3)
[2019-01-21 11:49] LABS: CULTURE INDICATED? YES; MICROSCOPIC INDICATED
--- NOTE | 2019-01-21 12:02 | NUR ---
RECEIVED REPORT FROM JACKELYN. ASSUMING CARE AT THIS TIME.
[2019-01-21 12:13] LABS: MEAN CORPUSCULAR HEMOGLOBIN 32.3 pg (27.5-34.5); MEAN CORPUSCULAR VOLUME 97.7 fL (81-97); RED BLOOD COUNT 5.02 x10^6/uL (4.38-5.82); RED CELL DISTRIBUTION WIDTH 14.2 % (9.4-14.8)
[2019-01-21 12:21] LABS: MEAN PLATELET VOLUME 9.2 fL (7.4-10.4); PLATELET COUNT 94 x10^3/uL (130-400)
[2019-01-21 12:22] LABS: BASOPHILS # (AUTO) 0.03 x10^3/uL (0-0.1); BASOPHILS % (AUTO) 0 % (0-1); EOSINOPHILS # (AUTO) 0.11 x10^3/uL (0-0.4); EOSINOPHILS % (AUTO) 1 % (1-7); LYMPHOCYTES # (AUTO) 1.03 x10^3/uL (1-3.4); LYMPHOCYTES % (AUTO) 8 % (22-44); MD SCAN; MONOCYTES % (AUTO) 5 % (2-9); NEUTROPHILS % (AUTO) 86 % (42-75)
--- NOTE | 2019-01-21 12:23 | NUR ---
ALL RESULTS ARE BACK AT THIS TIME. CHART UP FOR RECHECK
[2019-01-21 12:53] VITALS: BP 110/64
== END 2019-01-21 13:12 | disposition home or self-care (01) ==
LOC: ED 13:00
DX: N30.01 Acute cystitis with hematuria (principal); I10 Essential (primary) hypertension; E11.9 Type 2 diabetes mellitus without complications; E78.5 Hyperlipidemia, unspecified; K21.9 Gastro-esophageal reflux disease without esophagitis; I25.2 Old myocardial infarction; Z87.891 Personal history of nicotine dependence; Z90.49 Acquired absence of other specified parts of digestive tract
CPT/HCPCS: 36415; 80048; 81001; 82040; 85025; 87086; 87147; 99283

== ENCOUNTER → 2019-12-24 | Outpatient (CLI) | payer MEDICARE ==
[~2019-12-24] MED LIST changes: +REGADENOSON 0.4 MG/5 ML SYRINGE ONE
== END | disposition home or self-care (01) ==
LOC: CFH 07:50
PROVIDERS: ATTEND Internal Medicine Cardiovascular Disease
DX: I21.19 ST elevation (STEMI) myocardial infarction involving other coronary artery of inferior wall (principal); I25.119 Atherosclerotic heart disease of native coronary artery with unspecified angina pectoris
CPT/HCPCS: 78452; 93017; A9502; J2785

== ENCOUNTER 2020-03-10 08:32 | Observation (INO) | payer MEDICARE ==
[~2020-03-10] VITALS: Ht 167.6 cm; Wt 68.4 kg
[~2020-03-10 08:32] MED LIST changes: -ASPI-515 PO; +ASPI-963 PO; -REGADENOSON 0.4 MG/5 ML SYRINGE ONE
--- NOTE | 2020-03-10 08:52 | NUR ---
EKG DONE ON ARRIVAL. DR. MORRIS IN TO EVAL PT. AND DISCUSS POC. SPO2/CARDIAC/B/P MONITORS IN PLACE. NSR NOTED ON MONITOR. ALL SAFETY MEASURES OBSERVED.
[2020-03-10] MEDS ORDERED: ASPIRIN 81 MG TABLET CHEW ONE (08:59)
[2020-03-10] MEDS ORDERED: ASPIRIN 81 MG TABLET CHEW PO ONE (09:00)
[2020-03-10] MEDS ORDERED: SODIUM CHLORIDE FLUSH 10ML SYR IVF ONE (09:00)
--- NOTE | 2020-03-10 09:02 | NUR ---
Red RN note: Pt medicated per MAR. Pt denies pain or other needs at this time. geotechnical engineer at bedside to perform ordered studies.
[2020-03-10 09:22] LABS: BASOPHILS % (AUTO) 1 % (0-1); EOSINOPHILS % (AUTO) 1 % (1-7); LYMPHOCYTES % (AUTO) 11 % (22-44); MD NO; MEAN CORPUSCULAR HEMOGLOBIN 31.4 pg (27.5-34.5); MEAN CORPUSCULAR HGB CONC 33.5 g/dL (33.2-36.2); MEAN PLATELET VOLUME 8.8 fL (7.4-10.4); MONOCYTES % (AUTO) 9 % (2-9); NEUTROPHILS % (AUTO) 79 % (42-75); PLATELET COUNT 78 x10^3/uL (130-400); RED BLOOD COUNT 5.02 x10^6/uL (4.38-5.82); RED CELL DISTRIBUTION WIDTH 14.1 % (9.4-14.8)
[2020-03-10 09:29] LABS: ALANINE AMINOTRANSFERASE 26 U/L (12-78); ALBUMIN 3.5 g/dL (3.4-5.0); ANION GAP 4 mmol/L (5-15); CALCIUM 8.3 mg/dL (8.5-10.1); CHLORIDE 97 mmol/L (98-107); CREATININE 1.34 mg/dL (0.7-1.3)
[2020-03-10 09:34] LABS: ALKALINE PHOSPHATASE 106 U/L (45-117); TOTAL PROTEIN 6.4 g/dL (6.4-8.2); TROPONIN I < 0.015 ng/mL (0.000-0.045)
--- NOTE | 2020-03-10 09:59 | NUR ---
DR. MORRIS IN TO DISCUSS ADMIT PLAN WITH PT. PT. AGRRES WITH POC. IV ESTABLISHED. PT. DENIES NEEDS.
--- NOTE | 2020-03-10 11:10 | NUR ---
REPORT TO JEREMIAS ALEXANDER. FLOOR READY FOT PT. TRANSPORT. MEAL TRAY HAS NOT YET ARRIVED IN ED; PT. TO GET MEAL TRAY ON FLOOR.
[2020-03-10 11:39] VITALS: BP 168/81
[2020-03-10 11:48] VITALS: BP 168/81
[2020-03-10 12:49] VITALS: BP 157/80
[2020-03-10] MEDS ORDERED: POLYETHYLENE GLYCOL 17 GM PACKET PO PRN (14:30)
[2020-03-10] MEDS ORDERED: ONDANSETRON 2MG/ML, 2ML IVPush PRN (14:30)
[2020-03-10] MEDS ORDERED: HYDROcodone/APAP 5/325 TABLET PO PRN (14:30)
[2020-03-10] MEDS ORDERED: hydrALAzine 20 MG/ML, 1ML IVPush PRN (14:30)
[2020-03-10] MEDS ORDERED: morphine SULFATE 10 MG/ML, 1ML IVPush PRN (14:30)
[2020-03-10] MEDS ORDERED: MELATONIN 5 MG TABLET PO PRN (14:30)
[2020-03-10] MEDS ORDERED: DOCUSATE 100 MG CAPSULE PO PRN (14:30)
[2020-03-10] MEDS ORDERED: ONDANSETRON ODT 4 MG PO PRN (14:30)
[2020-03-10] MEDS ORDERED: BISACODYL 10 MG SUPP PR PRN (14:30)
[2020-03-10] MEDS ORDERED: ACETAMINOPHEN 325 MG TABLET PO PRN (14:30)
[2020-03-10] MEDS: HEPARIN 5,000 UNITS/ML, 1ML SQ SCH ×2 (14:50→21:47)
[2020-03-10] MEDS: SODIUM CHLORIDE 0.9% 1,000 ML IV SCH (14:51)
[2020-03-10 15:43] LABS: TROPONIN I < 0.015 ng/mL (0.000-0.045)
[2020-03-10] MEDS: INSULIN LISPRO 100 UNITS/ML, PEN SQ-INSULIN SCH ×2 (16:00→21:01)
[2020-03-10 19:08] VITALS: BP 174/84
[2020-03-10] MEDS ORDERED: ATORVASTATIN 40 MG TABLET PO SCH (21:00)
[2020-03-10] MEDS ORDERED: LOSARTAN 25MG TABLET PO SCH (21:00)
[2020-03-10 21:43] LABS: TROPONIN I < 0.015 ng/mL (0.000-0.045)
[2020-03-10 22:17] LABS: MICROSCOPIC NOT IND
[2020-03-11 01:31] VITALS: BP 127/80
[2020-03-11 04:29] LABS: BASOPHILS % (AUTO) 1 % (0-1); EOSINOPHILS % (AUTO) 2 % (1-7); LYMPHOCYTES % (AUTO) 17 % (22-44); MD NO; MEAN CORPUSCULAR HEMOGLOBIN 32.1 pg (27.5-34.5); MEAN CORPUSCULAR HGB CONC 33.9 g/dL (33.2-36.2); MEAN PLATELET VOLUME 8.7 fL (7.4-10.4); MONOCYTES % (AUTO) 11 % (2-9); NEUTROPHILS % (AUTO) 70 % (42-75); PLATELET COUNT 84 x10^3/uL (130-400); RED BLOOD COUNT 5.12 x10^6/uL (4.38-5.82)
[2020-03-11 04:42] LABS: ALBUMIN 3.3 g/dL (3.4-5.0); ANION GAP 4 mmol/L (5-15); CALCIUM 8.2 mg/dL (8.5-10.1); CHLORIDE 102 mmol/L (98-107)
[2020-03-11 04:52] LABS: ALANINE AMINOTRANSFERASE 26 U/L (12-78); ALKALINE PHOSPHATASE 105 U/L (45-117); BILIRUBIN,TOTAL 0.9 mg/dL (0.2-1.0); CHOLESTEROL, TOTAL 77 mg/dL (140-239); CREATININE 1.31 mg/dL (0.7-1.3); HDL CHOL % 51 % (26-37); HDL CHOLESTEROL (DIRECT) 39 mg/dL (40-60); LDL CHOLESTEROL,CALCULATED 23 mg/dL (54-169); LDL/HDL RATIO 0.6 (0.5-3.0); TOTAL PROTEIN 6.4 g/dL (6.4-8.2); TRIGLYCERIDES 75 mg/dL (50-200); VLDL CHOLESTEROL 15 mg/dL (0-25)
[2020-03-11] MEDS: HEPARIN 5,000 UNITS/ML, 1ML SQ SCH (05:34)
[2020-03-11] MEDS: INSULIN LISPRO 100 UNITS/ML, PEN SQ-INSULIN SCH ×2 (07:00→11:00)
[2020-03-11 07:04] VITALS: BP 128/73
[2020-03-11] MEDS ORDERED: PANTOPRAZOLE 40MG TABLET PO SCH (07:30)
[2020-03-11] MEDS ORDERED: REGADENOSON 0.4 MG/5 ML SYRINGE ONE (08:15)
[2020-03-11] MEDS ORDERED: CLOPIDOGREL 75 MG TABLET PO SCH (09:00)
[2020-03-11] MEDS ORDERED: METOPROLOL TARTRATE 25 MG TAB PO SCH (09:00)
[2020-03-11] MEDS ORDERED: ASPIRIN 81 MG TABLET EC PO SCH (09:00)
[2020-03-11] MEDS ORDERED: ISOSORBIDE MONONITRATE ER 30 MG TABLET PO SCH (09:00)
[2020-03-11] MEDS: SODIUM CHLORIDE 0.9% 1,000 ML IV SCH (11:09)
[2020-03-11 13:36] VITALS: BP 94/58
[2020-03-11 14:08] VITALS: BP 99/62
[2020-03-11 14:10] VITALS: BP 118/66
[2020-03-11 14:12] VITALS: BP 113/67
[2020-03-11] MEDS ORDERED: OMEP-110 PO (14:42)
== END 2020-03-11 16:11 | disposition home or self-care (01) ==
LOC: ED 09:13 → EDIP 10:23 → INTOOBSV 10:23 → 5SO 11:37 → DCLOUNGE 03-11 16:01
PROVIDERS: ADMIT Family Medicine; ATTEND Internal Medicine
DX: R07.89 Other chest pain (principal); I25.10 Atherosclerotic heart disease of native coronary artery without angina pectoris; M25.512 Pain in left shoulder; I12.9 Hypertensive chronic kidney disease with stage 1 through stage 4 chronic kidney disease, or unspecified chronic kidney disease; E11.22 Type 2 diabetes mellitus with diabetic chronic kidney disease; N18.9 Chronic kidney disease, unspecified; E78.5 Hyperlipidemia, unspecified; K21.9 Gastro-esophageal reflux disease without esophagitis; R35.1 Nocturia; R42 Dizziness and giddiness; N40.0 Benign prostatic hyperplasia without lower urinary tract symptoms; Z85.46 Personal history of malignant neoplasm of prostate; Z87.891 Personal history of nicotine dependence; Z79.899 Other long term (current) drug therapy; Z86.73 Personal history of transient ischemic attack (TIA), and cerebral infarction without residual deficits; Z95.1 Presence of aortocoronary bypass graft
CPT/HCPCS: 36415; 71045; 78452; 80053; 80061; 81003; 82962; 83036; 83735; 84100; 84443; 84484; 85025; 93005; 93017; 93306; 93356; 96360; 96361; 96372; 97161; 97165; 99285; A9502; G0378; J1644; J2785; J7030